=== PATIENT | male | born 1955 | race Caucasian/White ===

== ENCOUNTER 2021-01-24 08:11 | Emergency (ER) | payer MEDICARE, BC ==
--- NOTE | 2021-01-24 09:03 | EDM.PDOC ---
ED HPI GENERAL MEDICAL PROBLEM - General Chief Complaint: Back Pain or Injury Stated Complaint: R)flank pain Time Seen by Provider: 01/24/21 08:45 Source of Information: Reports: Patient History Limitations: Reports: No Limitations - History of Present Illness INITIAL COMMENTS - FREE TEXT/NARRATIVE: This patient is a 65 year old male that presents to the ER. Patient reports that he tripped and fell yesterday evening. Patient reports that he fell on his right side. Patient reports after he fell having right lower back pain. Patient reports that the pain radiates down into his right testicle. The patient reports he has history of kidney stones before and this feels like a kidney stone. He reports the pain did not start until after he fell. Patient reports pain to the right flank and right lateral side, radiates down into his right testicle. Patient denies hitting his head, loc, neck pain, chest pain, shortness of breath, abd pain, urinary/bowel changes. Does report last night having nausea and vomiting x1, which he reports he does when he has a kidney stone. Onset Date: 01/23/21 Duration: Hour(s): (12) Location: Reports: Back Front/Back Body Image: 1 - pain, tenderness. 2 - pain, tenderness over 12th rib area laterally 3 - abrasion 4 - abrasion Quality: Reports: Stabbing Severity: Moderate Improves with: Reports: None Worsens with: Reports: Movement Associated Symptoms: Reports: Nausea/Vomiting. Denies: Confusion, Chest Pain, Cough, cough w sputum, Diaphoresis, Fever/Chills, Headaches, Loss of Appetite, Malaise, Rash, Seizure, Shortness of Breath, Syncope, Weakness Right Flank Pain Score (Numeric/FACES): 8 - Related Data Allergies Allergy/AdvReac Type Severity Reaction Status Date / Time No Known Allergies Allergy Verified 01/24/21 08:15 Home Meds: Home Meds Tamsulosin HCl [Flomax] 0.4 mg PO DAILY #7 cap.er.24h 01/24/21 [Rx] allopurinoL [Zyloprim] 300 mg PO DAILY 01/24/21 [History] Past Medical History Genitourinary History: Reports: Renal Calculus Musculoskeletal History: Reports: Gout Social & Family History - Family History Family Medical History: No Pertinent Family History - Tobacco Use Tobacco Use Status *Q: Never Tobacco User - Caffeine Use Caffeine Use: Reports: Soda - Alcohol Use Days Per Week of Alcohol Use: 5 Number of Drinks Per Day: 2 Total Drinks Per Week: 10 - Recreational Drug Use Recreational Drug Use: No ED ROS GENERAL - Review of Systems Review Of Systems: See Below Constitutional: Reports: No Symptoms HEENT: Reports: No Symptoms Respiratory: Denies: Shortness of Breath Cardiovascular: Reports: No Symptoms Endocrine: Reports: No Symptoms GI/Abdominal: Reports: Nausea, Vomiting. Denies: Abdominal Pain, Diarrhea : Reports: No Symptoms Musculoskeletal: Reports: Back Pain (right lower) Skin: Reports: Wound (right elbow abrasion) Neurological: Reports: No Symptoms. Denies: Confusion, Dizziness, Headache, Numbness, Seizure, Syncope, Trouble Speaking, Weakness, Change in Speech Psychiatric: Reports: No Symptoms Hematologic/Lymphatic: Reports: No Symptoms Immunologic: Reports: No Symptoms ED EXAM, RENAL/ - Physical Exam Exam: See Below Exam Limited By: No Limitations General Appearance: Alert, WD/WN, No Apparent Distress Eye Exam: Bilateral Eye: EOMI, Normal Inspection, PERRL Ears: Normal External Exam, Normal Canal, Hearing Grossly Normal, Normal TMs Nose: Normal Inspection, Normal Mucosa, No Blood Throat/Mouth: Normal Inspection, Normal Lips, Normal Teeth, Normal Gums, Normal Oropharynx, Normal Voice, No Airway Compromise Head: Atraumatic, Normocephalic Neck: Normal Inspection, Supple, Non-Tender, Full Range of Motion Respiratory/Chest: No Respiratory Distress, Lungs Clear, Normal Breath Sounds, No Accessory Muscle Use, Other (right lateral, distal chest pain/tenderness over the 12th rib. No splinting, no flail chest. ). No: Respiratory Distress, Decreased Breath Sounds, Crackles, Rales, Rhonchi, Wheezing, Stridor, Pleural Rub, Accessory Muscle Use, Retractions, Splinting, Prolonged Expiration Cardiovascular: Normal Peripheral Pulses, Regular Rate, Rhythm, No Edema, No Gallop, No JVD, No Murmur, No Rub GI/Abdominal: Normal Bowel Sounds, Soft, Non-Tender, No Organomegaly, No Distention, No Abnormal Bruit, No Mass, Pelvis Stable (Male) Exam: Deferred Rectal (Males) Exam: Deferred Back Exam: Normal Inspection, Full Range of Motion, CVA Tenderness (R), Paraspinal Tenderness (right lateral lower lumbar). No: CVA Tenderness (L), Decreased Range of Motion, Muscle Spasm, Vertebral Tenderness Extremities: Normal Inspection, Normal Range of Motion, Non-Tender, No Pedal Edema, Normal Capillary Refill Neurological: Alert, Oriented, Normal Cognition, Normal Gait, No Motor/Sensory D eficits Psychiatric: Normal Affect, Normal Mood Skin Exam: Warm, Dry, Normal Color, No Rash, Wound/Incision (superficial abrasion right elbow, superfical abrasion right lower back) Course - Vital Signs Last Recorded V/S: Last Vital Signs Temp 95.5 F L 01/24/21 08:12 Pulse 61 01/24/21 08:12 Resp 18 01/24/21 08:12 BP 169/91 H 01/24/21 08:12 Pulse Ox 99 01/24/21 08:12 - Orders/Labs/Meds Orders: Active Orders 24 hr Category Date Time Status Abdomen Pelvis w Cont [CT] Routine Exams 01/24/21 Taken Ribs 2V w Chest Rt [CR] Stat Exams 01/24/21 08:54 Taken CALCULI, URINARY Stat Lab 01/24/21 08:56 Ordered Labs: Laboratory Tests 01/24/21 01/24/21 01/24/21 Range/Units 08:26 08:26 08:41 WBC 11.1 H (4.0-11.0) 10^3/uL RBC 4.21 L (4.50-6.00) x10^6/uL Hgb 13.8 L (14.0-18.0) g/dL Hct 39.2 L (42.0-52.0) % MCV 93.1 (83.0-97.0) fL MCH 32.8 H (27.0-32.0) pg MCHC 35.2 (32.0-36.0) g/dL RDW Coeff of Manuel 12.0 (11.0-15.0) % Plt Count 258 (150-400) 10^3/uL Immature Gran % (Auto) 0.2 (0.0-4.9) % Neut % (Auto) 74.9 H (41-71) % Lymph % (Auto) 14.3 L (24-44) % Curry % (Auto) 9.6 (0-10) % Eos % (Auto) 0.7 (0-6) % Baso % (Auto) 0.3 (0-1) % Neut # (Auto) 8.33 H (1.80-8.00) x10^3/uL Lymph # (Auto) 1.59 (0.60-5.00) 10^3/uL Curry # (Auto) 1.07 (0.00-1.50) 10^3/uL Eos # (Auto) 0.08 (0.00-1.50) 10^3/uL Baso # (Auto) 0.03 (0.00-0.50) 10^3/uL Immature Gran # (Auto) 0.02 (0.00-0.49) 10^3/uL Sodium 135 L (136-145) mEq/L Potassium 4.1 (3.5-5.0) mEq/L Chloride 99 (98-106) mEq/L Carbon Dioxide 27 (21-32) mmol/L BUN 18 (7-18) mg/dL Creatinine 1.4 H (0.7-1.3) mg/dL Est Cr Clr Drug Dosing 50.21 mL/min Estimated GFR (MDRD) 51 L (>=60) mL/min Glucose 116 H (75-99) mg/dL Calcium 8.3 L (8.4-10.1) mg/dL Total Bilirubin 1.1 H (0.0-1.0) mg/dL AST 34 (15-37) U/L ALT 41 (12-78) U/L Alkaline Phosphatase 86 (46-116) U/L Total Protein 7.1 (6.4-8.2) g/dL Albumin 3.6 (3.4-5.0) g/dL Urine Color Yellow (YELLOW) Urine Appearance Clear (CLEAR) Urine pH 6.5 (4.5-8.0) Ur Specific [place] 1.015 (1.003-1.020) Urine Protein Negative (NEGATIVE) mg/dL Urine Glucose (UA) Negative (NEGATIVE) mg/dL Urine Ketones Negative (NEGATIVE) mg/dL Urine Occult Blood Moderate H (NEGATIVE) Urine Nitrite Negative (NEGATIVE) Urine Bilirubin Negative (NEGATIVE) Urine Urobilinogen 0.2 (0.2-1.0) EU/dL Ur Leukocyte Esterase Negative (NEGATIVE) Urine RBC 10-20 H (0-5) /HPF Urine WBC Not seen (0-5) /HPF Meds: Medications Discontinued Medications Generic Name Dose Route Start Last Admin Trade Name Yahir PRN Reason Stop Dose Admin Sodium Chloride 1,000 mls @ 1,000 mls/hr 01/24/21 09:26 01/24/21 09:53 Normal Saline IV 01/24/21 10:25 1,000 mls/hr .BOLUS ONE Administration Iopamidol 100 ml 01/24/21 09:30 01/24/21 09:56 Iopamidol 755 Mg/Ml 100 Ml Bottle IVPUSH 01/24/21 09:31 100 ml ONETIME ONE Administration - Radiology Interpretation Free Text/Narrative:: CXR Ribs Right: No fractures seen, no hemo, no pneumothorax. CT Abd/Pelvis with contrast: no inflammatory changes. Correlate for recently passed right-sided calculus although overall subtle findings. CT Results Date: 01/24/21 CT Results Time: 10:57 - Re-Assessments/Exams Free Text/Narrative Re-Assessment/Exam: 01/24/21 09:25 Patient reports he urinated, we strained his urine, there does appear to be a stone present. Will send to lab for evaluation. Patient reports his pain is now a 2/10, when he presented was an 8/10. I elected to ct patient with contrast due to his fall, with pain, blood in urine, and rib pain/tenderness to rule out renal trauma/injury. 01/24/21 10:53 Called [facility] to check on status of CT. It has been read, they are faxing now. 01/24/21 11:02 Patient reports he feels much better. Will discharge. Departure - Departure Time of Disposition: 11:03 Disposition: Home, Self-Care 01 Condition: Fair Clinical Impression: Renal insufficiency, Ureteral calculus, right - Discharge Information *PRESCRIPTION DRUG MONITORING PROGRAM REVIEWED*: Not Applicable *COPY OF PRESCRIPTION DRUG MONITORING REPORT IN PATIENT ANGEL: Not Applicable Prescriptions: Tamsulosin HCl [Flomax] 0.4 mg PO DAILY #7 cap.er.24h Instructions: Back Injury Prevention, [id number], Kidney Stones, [id number] Referrals: PCP,None [Primary Care Provider] - Forms: ED Department Discharge Additional Instructions: Followup with your primary care provider Return to the ER for worsening of condition or any emergent concerns Tylenol or Motrin for pain Flomax 0.4mg 1 pill once a day for 7 days #7 no refill Increase fluids Sepsis Event Note (ED) - Evaluation Sepsis Screening Result: No Definite Risk - Focused Exam Vital Signs: Vital Signs Temp Pulse Resp BP Pulse Ox 01/24/21 08:12 95.5 F L 61 18 169/91 H 99 - My Orders Last 24 Hours: My Active Orders 01/24/21 Abdomen Pelvis w Cont [CT] Routine 01/24/21 08:54 Ribs 2V w Chest Rt [CR] Stat 01/24/21 08:56 CALCULI, URINARY Stat - Assessment/Plan Last 24 Hours: My Active Orders 01/24/21 Abdomen Pelvis w Cont [CT] Routine 01/24/21 08:54 Ribs 2V w Chest Rt [CR] Stat 01/24/21 08:56 CALCULI, URINARY Stat Plan: PLEASE SEE RN NOTE FOR PFSH
[2021-01-24] MEDS ORDERED: Sodium Chloride 0.9% 1,000 ML IV ONE (09:26)
[2021-01-24] MEDS ORDERED: Iopamidol 755 Mg/ML 100 ML Bottle IVPUSH ONE (09:30)
== END 2021-01-24 11:18 | disposition home or self-care (01) ==
LOC: CC.ED 08:11
DX: N20.1 Calculus of ureter (principal); N28.9 Disorder of kidney and ureter, unspecified; S50.311A Abrasion of right elbow, initial encounter; S30.810A Abrasion of lower back and pelvis, initial encounter; W01.0XXA Fall on same level from slipping, tripping and stumbling without subsequent striking against object, initial encounter
CPT/HCPCS: 36415; 71101; 74177; 80053; 81001; 82365; 85025; 99284; J7030; Q9967